=== PATIENT | male | born 2005 | race Caucasian/White ===

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

== ENCOUNTER 2023-11-30 22:16 | Emergency (ER) | payer OTHER, SELFPAY ==
[2023-11-30 22:21] VITALS: BP 129/74; PULSE 66; RESP 16; TEMP 36.1; O2SAT 98
--- NOTE | 2023-11-30 23:48 | ED.GENADULT ---
HPI - General Adult General Chief complaint: Skin/Abscess/Foreign Body Stated complaint: allergic reaction to poisonous plant Time Seen by Provider: 11/30/23 23:35 History of Present Illness HPI narrative: Patient is a 17-year-old male who presents ER with rash. Patient is exposed to likely poison christo earlier in the week and has linear lesions the legs. He has been using topical triamcinolone and a topical mupirocin ointment without improvement. Tonight he developed urticaria to his chest and neck. No lip or tongue swelling. No difficulty breathing or swallowing. Denies any exposures to new soaps/ detergents/ animals. No additional exposures to poison his plans. Related Data Allergies Allergy/AdvReac Type Severity Reaction Status Date / Time No Known Allergies Allergy Unverified 01/01/14 17:51 Review of Systems Constitutional: Constitutional: Reports no additional constitutional complaints ENT: Reports system reviewed and no additional complaints, except as documented Respiratory: Respiratory: Reports no additional respiratory complaints Integumentary/Breasts: Skin/Breast: Reports erythema, Reports rash and Denies skin ulcer Allergic/Immunologic: Allergic/Immunologic: Reports no additional allergic/immunologic complaints PENDING SALE TO [facility] Past Medical History Medical History (Updated 11/30/23 @ 23:52 by Yifan Silva MD) Healthy adult male Surgical History Surgical History (Updated 11/30/23 @ 23:50 by Yifan Silva MD) No history of previous surgery Exam Narrative: GENERAL: Well-appearing, well-nourished, and in no acute distress. HEAD: Normocephalic, atraumatic. ENT: Mucous membranes moist. NECK: Supple. excoriations on the back of the neck. EXTREMITIES: Normal range of motion. No edema. SKIN: Warm, dry, Contact dermatitis left lower extremity with scabbing. NEURO: Alert and oriented x3. PSYCH: Normal mood and affect. Course Course Emergency Course: Patient's rash improved with Benadryl from home. Will give a Medrol injection because steroids are appropriate he prefers injection form. Will also recommend Zyrtec and famotidine for home. He Vital Signs Vital signs: Vital Signs Temperature 97 F L 11/30/23 22:21 Pulse Rate 66 11/30/23 22:21 Respiratory Rate 16 11/30/23 22:21 Blood Pressure 129/74 11/30/23 22:21 Pulse Oximetry 98 11/30/23 22:21 Temperature 97 F L 11/30/23 22:21 Pulse Rate 66 11/30/23 22:21 Respiratory Rate 16 11/30/23 22:21 Blood Pressure 129/74 11/30/23 22:21 Pulse Oximetry 98 11/30/23 22:21 Medical Decision Making Vital Signs Vital Signs: Vital Signs Temperature 97 F L 11/30/23 22:21 Pulse Rate 66 11/30/23 22:21 Respiratory Rate 16 11/30/23 22:21 Blood Pressure 129/74 11/30/23 22:21 Pulse Oximetry 98 11/30/23 22:21 Temperature 97 F L 11/30/23 22:21 Pulse Rate 66 11/30/23 22:21 Respiratory Rate 16 11/30/23 22:21 Blood Pressure 129/74 11/30/23 22:21 Pulse Oximetry 98 11/30/23 22:21 Discharge Plan Discharge Clinical Impression: Urticaria, Contact dermatitis Patient Disposition: Home, Self-Care Condition: Stable Instructions: Contact Dermatitis (ED), Urticaria (ED) Additional Instructions: return ER if you cannot breathe, you cannot swallow, you lose consciousness, or have additional concerns. Prescriptions: New Zyrtec 10 mg capsule 10 mg PO DAILY Qty: 7 0RF famotidine 10 mg tablet 10 mg PO BID Qty: 14 0RF Follow-up/Referrals: Wiliam Ellis MD [Primary Care Provider] - 1 Week
[2023-12-01] MEDS: methylPREDNISolone ACETATE 40 MG/ML VIAL IM
[2023-12-01 00:09] VITALS: BP 124/66; PULSE 64; RESP 15; O2SAT 100
== END 2023-12-01 00:10 | disposition home or self-care (01) ==
LOC: ANHED 12-01 00:01
PROVIDERS: Emergency Provider Emergency Medicine; PCP Pediatrics
DX: L50.9 Urticaria, unspecified (principal); L25.9 Unspecified contact dermatitis, unspecified cause
CPT/HCPCS: 96372; 99283; J1010